=== PATIENT | female | born 1985 | race Caucasian/White ===

== ENCOUNTER 2016-11-07 10:52 | Day surgery (SDC) | payer OTHER ==
[~2016-11-07 10:52] MED LIST: ACETAMINOPHEN 325 MG TABLET (FP) PO PRN; CIPROFLOXACIN HCL 0.3% OPHTH 2.5ML BOTTLE OP SCH; LIDOCAINE 1%/EPI 1:100000 (50 ML MULTI DOSE VIAL) INF ONE; TRIAMCINOLONE ACET 40MG/1ML VIAL IJ ONE; VANCOMYCIN 500 MG VIAL (RESTRICTED TO ID ONLY) IVPB ONE
[2016-11-07] MEDS ORDERED: CIPROFLOXACIN 0.3% EYE DROPS 5 ML BOTTLE ONE (11:24)
[2016-11-07 11:27] VITALS: TEMP 97.7
[2016-11-07] MEDS ORDERED: MIDAZOLAM HCL 2 MG/2 ML SINGLE DOSE VIAL ONE ×2 (12:20→13:13)
[2016-11-07] MEDS ORDERED: LIDOCAINE 1%/EPI 1:100000 (50 ML MULTI DOSE VIAL) INF ONE (13:13)
[2016-11-07] MEDS ORDERED: TRIAMCINOLONE ACET 40MG/1ML VIAL IJ ONE (13:28)
[2016-11-07] MEDS ORDERED: VANCOMYCIN 500 MG VIAL (RESTRICTED TO ID ONLY) IVPB ONE (13:31)
[2016-11-07] MEDS ORDERED: ACETAMINOPHEN 325 MG TABLET (FP) ONE (14:24)
[2016-11-07 15:12] VITALS: BP 137/80; PULSE 79
--- NOTE | 2016-11-08 09:29 | OP ---
DATE OF OPERATION: DATE OF DICTATION: 11/07/2016 PREOPERATIVE DIAGNOSIS: Pterygium, right eye. POSTOPERATIVE DIAGNOSIS: Pterygium, right eye. OPERATION: Excision of right pterygium with amniotic membrane transplantation. SURGEON: Dameon Rey M.D. ANESTHESIA: Topical MAC. COMPLICATIONS: None. PROCEDURE: The patient was brought to the operating room and correctly identified along with the operative site. She was then prepped and draped in the usual sterile fashion, including 5% Betadine solution in the conjunctival sac and an eyelid drape. An eyelid speculum was then placed into the right eye. The borders of the pterygium were marked and using Estelle scissors, the pterygium was dissected beneath the sclera and then freed from the corneal surface. Immediate retraction of the conjunctival skin was noted. By elevating the pterygium, the tissue beneath it was bluntly dissected using estelle sponges. The pterygium was then excised at its base, with care made not to damage the medial rectus tendon by elevating the pterygium during the excision. The conjunctival defect was measured and measured 5 x 5 mm. Light cautery was performed for hemostasis. The corneal surface was then polished using a 57 blade as well as joseluis bur. An appropriate sized amniotic membrane was then created and sutured in place with 4 interrupted 10-0 nylon sutures. At the end of the procedure, the graft was noted to be well-positioned. There was no active bleeding. Subconjunctival Kenalog was given and topical vancomycin. The eye was patched and shielded. The patient was then discharged from the operating room in stable condition. DAMEON REY M.D. [id number] MTDD
--- NOTE | 2016-11-09 12:32 | PATH ---
Surgical Pathology Report Patient Name: TAMMI BAUTISTA [facility]. Rec. #: [id number] /Age/Gender: 1985 (Age: 31) / F Account: [id number] Location: [facility] SURGICAL Taken: 11/07/2016 Received: 11/08/2016 Reported: 11/09/2016 Physicians: Dameon Mccoy M.D. Specimen(s) Received NASAL PTERYGIUM RIGHT EYE Clinical History Pterygium right eye Final Diagnosis CONJUNCTIVA, RIGHT EYE, NASAL PTERIGIUM, EXCISION: CONJUNCTIVA WITH ELASTIC DEGENERATION, FOCAL FIBROSIS AND NEOVASCULARIZATION CONSISTENT WITH PTERIGIUM. Electronically Signed Papa Berry M.D. Gross Description Received in formalin, labeled "nasal pterygium right eye" is a montgomery, irregular portion of soft tissue measuring 0.4 cm in greatest dimension. The specimen is submitted in toto in one cassette. 11/08/201611/08/2016
== END 2016-11-07 15:00 | disposition home or self-care (01) ==
LOC: JASU-SURG 10:52
PROVIDERS: ATTEND Ophthalmology
PROC: 08U007Z Supplement of Right Eye with Autologous Tissue Substitute, Open Approach (ICD-10-PCS; principal; 2016-11-07 12:00)
DX: H11.001 Unspecified pterygium of right eye (principal)
CPT/HCPCS: 84703; 88304-TC

== ENCOUNTER 2022-10-03 16:55 | Inpatient (IN) | payer OTHER ==
[2022-10-03 18:08] VITALS: RESP 18; BMI 23.2
[2022-10-03] MEDS ORDERED: ACETAMINOPHEN 325 MG TABLET (FP) PO ONE (18:57)
[2022-10-03] MEDS ORDERED: LIDOCAINE 5% TOPICAL PATCH TP ONE (18:57)
[2022-10-03] MEDS ORDERED: ACETAMINOPHEN 325 MG TABLET (FP) ONE (19:13)
[2022-10-03] MEDS ORDERED: LIDOCAINE 5% TOPICAL PATCH ONE (19:13)
[2022-10-03 19:41] LABS: URINE APPEARANCE CLEAR; URINE BILIRUBIN NEGATIVE (NEGATIVE); URINE COLOR YELLOW; URINE GLUCOSE (UA) NEGATIVE (NEGATIVE); URINE KETONE NEGATIVE (NEGATIVE); URINE LEUK ESTERASE NEGATIVE (NEGATIVE); URINE NITRITE NEGATIVE (NEGATIVE); URINE PROTEIN NEGATIVE (NEGATIVE); URINE UROBILINOGEN 0.2 mg/dL (0.2-1.0)
[2022-10-03 19:59] LABS: HCG,QUALITATIVE URINE Negative
[2022-10-03] MEDS ORDERED: METHOCARBAMOL 500 MG TABLET PO ONE (20:02)
[2022-10-03] MEDS ORDERED: KETOROLAC TROMETHAMINE 30 MG/1 ML VIAL IM ONE (20:02)
[2022-10-03] MEDS ORDERED: METHOCARBAMOL 500 MG TABLET ONE (20:31)
[2022-10-03] MEDS ORDERED: KETOROLAC TROMETHAMINE 15 MG/ML VIAL ONE (20:33)
[2022-10-03] MEDS ORDERED: oxyCODONE HCL 5 MG TABLET PO ONE (21:25)
[2022-10-03] MEDS ORDERED: LIDOCAINE PATCH REMOVAL MC ONE (22:00)
[2022-10-03] MEDS ORDERED: oxyCODONE HCL 5 MG TABLET ONE (23:34)
[2022-10-04] MEDS ORDERED: diazePAM 5 MG TABLET PO ONE ×2 (00:17→03:47)
[2022-10-04 00:48] VITALS: BP 124/85; PULSE 85; TEMP 98.6
[2022-10-04] MEDS ORDERED: diazePAM 5 MG TABLET ONE ×2 (01:07→04:11)
[2022-10-04] MEDS ORDERED: KETOROLAC TROMETHAMINE 30 MG/1 ML VIAL IVPUSH ONE (03:46)
[2022-10-04] MEDS ORDERED: KETOROLAC TROMETHAMINE 30 MG/1 ML VIAL IM ONE (03:49)
[2022-10-04] MEDS ORDERED: KETOROLAC TROMETHAMINE 15 MG/ML VIAL ONE (04:11)
== END 2022-10-04 06:14 | disposition home or self-care (01) | DRG 347 ==
LOC: JER 16:55 → JERBED 10-04 03:29
PROVIDERS: ADMIT Internal Medicine; ATTEND Internal Medicine
DX: M99.03 Segmental and somatic dysfunction of lumbar region (principal)
CPT/HCPCS: 72131-TC; 81003; 84703; 99285-25

== ENCOUNTER 2023-05-22 04:37 | Emergency (ER) | payer OTHER ==
[2023-05-22 04:48] VITALS: BP 129/95; PULSE 87; RESP 16; TEMP 99.1; BMI 23.6
[2023-05-22] MEDS ORDERED: ONDANSETRON 4 MG/2 ML VIAL ONE (04:54)
[2023-05-22] MEDS: ONDANSETRON 4 MG/2 ML VIAL IVPUSH ONE (04:58)
[2023-05-22] MEDS: SODIUM CHLORIDE 1,000 ML IV STA ×2 (04:59→06:23)
[2023-05-22] MEDS ORDERED: ACETAMINOPHEN INJECTION 100 ML IVPB ONE (05:14)
[2023-05-22] MEDS ORDERED: FAMOTIDINE 20 MG/50 ML IVPB 20 MG/50 ML MG IVPB ONE (05:14)
[2023-05-22] MEDS: ACETAMINOPHEN 1000 MG/100 ML BAG IVPB ONE (05:18)
[2023-05-22] MEDS: FAMOTIDINE 20 MG/50 ML IVPB 20 MG/50 ML MG IVPB ONE (05:33)
[2023-05-22 05:44] LABS: BASO % 0.4 % (0-2.0); HEMATOCRIT 35.4 % (32.4-45.2); HEMOGLOBIN 11.3 GM/dL (10.7-15.3); LYMPH % 24.1 % (8-40); MCH 24.4 pg (25.7-33.7); MEAN CELL VOLUME 76.2 fl (80-96); MONO % 9.8 % (3.8-10.2); NEUT % 61.7 % (42.8-82.8); PLATELET COUNT 373 10^3/uL (134-434); RBC 4.65 M/mm3 (3.60-5.2); RDW 14.8 % (11.6-15.6); WHITE BLOOD COUNT 5.3 K/mm3 (4.0-10.0)
[2023-05-22 05:50] LABS: PH,URINE 5.5 (5.0-8.0); URINE APPEARANCE CLOUDY; URINE BILIRUBIN NEGATIVE (NEGATIVE); URINE COLOR DK YELLOW; URINE GLUCOSE (UA) NEGATIVE (NEGATIVE); URINE KETONE TRACE (NEGATIVE); URINE LEUK ESTERASE NEGATIVE (NEGATIVE); URINE NITRITE NEGATIVE (NEGATIVE); URINE PROTEIN TRACE (NEGATIVE); URINE UROBILINOGEN 0.2 mg/dL (0.2-1.0)
[2023-05-22] MEDS ORDERED: KETOROLAC TROMETHAMINE 30 MG/1 ML VIAL ONE (05:52)
[2023-05-22] MEDS: KETOROLAC TROMETHAMINE 30 MG/1 ML VIAL IVPUSH ONE (05:54)
[2023-05-22 06:03] LABS: POTASSIUM 4.1 mmol/L (3.5-5.1)
[2023-05-22 06:07] LABS: CALCIUM 8.5 mg/dL (8.5-10.1)
[2023-05-22 06:08] LABS: ALBUMIN 3.4 g/dl (3.4-5.0); BLOOD UREA NITROGEN 9.8 mg/dL (7-18)
[2023-05-22 06:11] LABS: CREATININE 0.5 mg/dL (0.55-1.3)
[2023-05-22 06:12] LABS: BILIRUBIN,TOTAL 0.3 mg/dL (0.2-1); TOT PROT 7.3 g/dl (6.4-8.2)
[2023-05-22 06:16] LABS: HCG,QUALITATIVE URINE Negative
== END 2023-05-22 07:03 | disposition home or self-care (01) ==
LOC: FER 04:37
PROC: 3E033GC Introduction of Other Therapeutic Substance into Peripheral Vein, Percutaneous Approach (ICD-10-PCS; principal; 2023-05-22)
PROC: 3E033NZ Introduction of Analgesics, Hypnotics, Sedatives into Peripheral Vein, Percutaneous Approach (ICD-10-PCS; 2023-05-22)
PROC: 3E0333Z Introduction of Anti-inflammatory into Peripheral Vein, Percutaneous Approach (ICD-10-PCS; 2023-05-22)
PROC: 3E033GC Introduction of Other Therapeutic Substance into Peripheral Vein, Percutaneous Approach (ICD-10-PCS; 2023-05-22)
PROC: 3E0337Z Introduction of Electrolytic and Water Balance Substance into Peripheral Vein, Percutaneous Approach (ICD-10-PCS; 2023-05-22)
PROC: 3E0337Z Introduction of Electrolytic and Water Balance Substance into Peripheral Vein, Percutaneous Approach (ICD-10-PCS; 2023-05-22)
DX: R10.13 Epigastric pain (principal); R11.2 Nausea with vomiting, unspecified; R19.7 Diarrhea, unspecified; K52.9 Noninfective gastroenteritis and colitis, unspecified
CPT/HCPCS: 36415; 80053; 81003; 81025; 84703; 85025; 99284-25; J0131